=== PATIENT | female | born 1955 | race Caucasian/White ===

== ENCOUNTER → 2017-01-06 | Outpatient (CLI) | payer OTHER ==
[~2017-01-06] MED LIST: BYSTOLIC10 MG PO; LISINOPRIL10 MG PO; ZYRTEC10 M2 PO
[2017-01-06 10:12] LABS: CREATININE 0.8 mg/dL (0.6-1.0)
== END ==
LOC: MRI 07:39
PROVIDERS: Family Medicine
DX: M43.26 Fusion of spine, lumbar region (principal); M54.5 Low back pain

== ENCOUNTER 2017-12-05 15:43 | Emergency (ER) | payer OTHER ==
[~2017-12-05] VITALS: Ht 162.6 cm; Wt 72.6 kg
[2017-12-05 16:11] LABS: HEMATOCRIT 44.9 % (37.0-47.0); HEMOGLOBIN 15.2 gm/dL (12.0-15.0); MCH 30.4 pg (26.0-34.0); MCHC 33.8 g/dL (28.0-37.0); RBC 4.99 mil/uL (4.20-5.00); RDW 12.9 % (10.5-14.5); WBC 11.1 thou/uL (4.0-11.0)
[2017-12-05 16:19] LABS: CALCIUM 11.1 mg/dL (8.5-10.1); POTASSIUM 4.3 mmol/L (3.5-5.1)
== END 2017-12-05 17:36 | disposition home or self-care (01) ==
LOC: ER 15:43
PROVIDERS: Physician Assistant
DX: T18.128A Food in esophagus causing other injury, initial encounter (principal); I10 Essential (primary) hypertension; K21.9 Gastro-esophageal reflux disease without esophagitis; Z88.1 Allergy status to other antibiotic agents; X58.XXXA Exposure to other specified factors, initial encounter; Y93.89 Activity, other specified; Y92.89 Other specified places as the place of occurrence of the external cause; Y99.8 Other external cause status

== ENCOUNTER → 2019-08-31 | Outpatient (CLI) | payer OTHER | LOC: CAT 09:36 | DX: Z13.6 Encounter for screening for cardiovascular disorders (principal); E78.00 Pure hypercholesterolemia, unspecified; I25.10 Atherosclerotic heart disease of native coronary artery without angina pectoris ==